=== PATIENT | female | born 1965 | race Caucasian/White ===

== ENCOUNTER 2020-11-13 14:19 | Emergency (ER) | payer OTHER, SELFPAY ==
--- NOTE | ~2020-11-13 | XR_ITS ---
EXAMINATION: XR foot RT min 3V EXAM DATE: 11/13/2020 15:21 INDICATION: Rectal injury, bruising, pain. Initial encounter. TECHNIQUE: Right foot dorsoplantar, lateral and oblique projections obtained and reviewed. There is no prior study for comparison. FINDINGS: Right metatarsal bones unremarkable. Acute closed posttraumatic fracture at the neck of t he right 4th proximal phalanx with about 40% superolateral displacement and mild angulation. There is overlying soft tissue swelling. No other acute findings. There is a metallic ring limiting evaluat ion of the 2nd toe. IMPRESSION: Acute right 4th proximal phalangeal neck fracture. Reviewed, dictated and finalized at location [facility]. [facility] CARVER
[2020-11-13 14:21] VITALS: BP 144/91; PULSE 77; RESP 17; TEMP 36.2; O2SAT 97
--- NOTE | 2020-11-13 17:07 | ED.GENADULT ---
HPI - General Adult General Chief complaint: Wound/Laceration Stated complaint: BROKEN TOE Time Seen by Provider: 11/13/20 15:27 Source: patient Mode of arrival: ambulatory Limitations: no limitations History of Present Illness HPI narrative: Patient presents with chief complaint of pain to the fourth right digit after accidentally stubbing the toe on a banister. Patient states that she noticed angulation of the toe so she came to the emergency department as it was also very painful. Patient states a friend gave her Vicodin as she was in a tremendous amount of pain and does not have any prescribed pain medication. Related Data Allergies Allergy/AdvReac Type Severity Reaction Status Date / Time No Known Allergies Allergy Verified 11/13/20 17:13 Review of Systems Review of Systems: Narrative: CONSTITUTIONAL: Denies fever, chills, or sweats. EYES: Denies visual changes, redness, or discharge. ENT: Denies rhinorrhea, congestion, sore throat, or otalgia. CARDIOVASCULAR: Denies chest pain, palpitations, or edema. RESPIRATORY: Denies cough or dyspnea. GASTROINTESTINAL: Denies abdominal pain, nausea, vomiting, or diarrhea. GENITOURINARY: Denies dysuria or hematuria. SKIN: Denies rash or itching. MUSCULOSKELETAL: Reports right fourth digit pain denies back pain, or myalgia. NEUROLOGIC: Denies headache, numbness, dizziness, or weakness. PSYCHIATRIC: Denies anxiety or depression. [facility] Social History Social History Gender identity (if verbalized by the patient): Female Exam Narrative: Exam Narrative: GENERAL: Well-appearing, well-nourished, and in no acute distress. HEAD: Normocephalic, atraumatic. EYES: PERRLA and EOMI. NECK: Supple. No adenopathy or masses. CHEST: Clear to auscultation. No respiratory distress. No wheezes rales or rhonchi HEART: Regular rate and rhythm. No murmur heard. Normal peripheral pulses. EXTREMITIES:: Ecchymosis noted to the 4th right fourth digit with deformity noted. No open wound noted. SKIN: Ecchymosis and swelling noted to the fourth digit warm, dry, no rash. NEURO: No focal deficits. Alert and oriented x3. PSYCH: Normal mood and affect. Course Vital Signs Vital signs: Vital Signs Temperature 97.2 F L 11/13/20 14:21 Pulse Rate 77 11/13/20 14:21 Respiratory Rate 17 11/13/20 14:21 Blood Pressure 144/91 H 11/13/20 14:21 Pulse Oximetry 97 11/13/20 14:21 Temperature 97.2 F L 11/13/20 14:21 Pulse Rate 77 11/13/20 14:21 Respiratory Rate 17 11/13/20 14:21 Blood Pressure 144/91 H 11/13/20 14:21 Pulse Oximetry 97 11/13/20 14:21 Medical Decision Making MDM Narrative Medical decision making narrative: Talk with Dr. Pacheco regarding patient's x-ray. He states despite the angulation he can be mckenzie taped and referred to software engineering specialist. Discussed with patient x-ray findings, need for follow-up, mckenzie taping and postop shoe. Patient refuses crutches to assist with ambulation. Patient states that she does not have any pain medication prescriptions &Needs medication for home to assist with pain. Differential Diagnosis Differential Diagnosis: Fracture, sprain, strain, contusion Vital Signs Vital Signs: Vital Signs Temperature 97.2 F L 11/13/20 14:21 Pulse Rate 77 11/13/20 14:21 Respiratory Rate 17 11/13/20 14:21 Blood Pressure 144/91 H 11/13/20 14:21 Pulse Oximetry 97 11/13/20 14:21 Temperature 97.2 F L 11/13/20 14:21 Pulse Rate 77 11/13/20 14:21 Respiratory Rate 17 11/13/20 14:21 Blood Pressure 144/91 H 11/13/20 14:21 Pulse Oximetry 97 11/13/20 14:21 Imaging Data Radiologist's impression: ITS Impressions Foot X-Ray 11/13/20 15:22 IMPRESSION: Acute right 4th proximal phalangeal neck fracture. Discharge Plan Discharge Clinical Impression: Closed fracture of fourth toe of right foot Patient Disposition: Home, Self-Care Condition: Stable Instructions: Antibiotic Form, Toe Fractu
[2020-11-13] MEDS: HYDROcodone/acetaminophen (*CRX) 5-325 MG TABLET 1 TAB PO (17:28)
== END 2020-11-13 17:49 | disposition home or self-care (01) ==
PROVIDERS: Emergency Provider Emergency Medicine
DX: M79.674 Pain in right toe(s) (principal); S92.511A Displaced fracture of proximal phalanx of right lesser toe(s), initial encounter for closed fracture; W22.09XA Striking against other stationary object, initial encounter
CPT/HCPCS: 73630; 99284; A9270

== ENCOUNTER 2023-12-15 13:10 | Outpatient (CLI) | payer OTHER, SELFPAY ==
--- NOTE | ~2023-12-15 | MR_ITS ---
MRI of the lumbar spine Clinical History: Left sciatica Technique: Axial T2-weighted images, and sagittal T1-weighted, T2-weighted, and and T2 fat-sat images were acquired. Findings: There is no fracture or subluxation of the lumbar spine. Vertebral bodies maintain normal h eight and alignment. No suspicious bone marrow signal abnormality seen. At L1-L2, there is no disc bulge or herniation. There is no significant facet joint arthropathy. No s clarita canal stenosis or neural foraminal narrowing. At L2-L3, there is mild degenerative disc narrowing. There is minimal disc bulge and mild facet arthr opathy. No central canal stenosis. There is mild bilateral neural foraminal narrowing. L3-L4, there is mild disc bulge and mild facet arthropathy. No central canal stenosis. There is sever e left neural foraminal narrowing, and mild right neural foraminal narrowing. At L4-L5, there is disc bulge and severe facet arthropathy. No yevgeniy central canal stenosis. There is severe left neural foraminal narrowing, with preservation right neural foramen. At L5-S1, there is mild disc bulge and moderate facet arthropathy. No central canal stenosis. There i s mild to moderate left neural foraminal narrowing. Right neural foramen preserved. Paravertebral soft tissues are unremarkable. Impression: Moderate degenerative spondylitic changes, as above. Reviewed, dictated and finalized at [facility]. [employer]IC PRESERVATIONIST Impression: Moderate degenerative spondylitic changes, as above.
== END 2023-12-15 13:11 ==
LOC: MICIMG 13:12
PROVIDERS: PCP Family Medicine; Visit Provider Family Medicine
DX: M54.32 Sciatica, left side (principal)
CPT/HCPCS: 72148

== ENCOUNTER 2024-08-19 10:27 | Outpatient (CLI) | payer OTHER, SELFPAY ==
--- NOTE | ~2024-08-19 | MM_ITS ---
EXAMINATION: MM screening nataliia BI w krystle HISTORY: Screening TECHNIQUE: Craniocaudal and mediolateral oblique 3-D tomosynthesis images were obtained and synthetic 2-D images were generated. CAD analysis was submitted and interpreted. COMPARISON: No prior mammogram is available for comparison at this institution. BREAST PARENCHYMAL COMPOSITION: Dense: The breasts are heterogeneously dense, which may obscure small masses FINDINGS: There is no evidence of suspicious mass, calcification, or architectural distortion to sugg est malignancy in either breast. There has been no suspicious interval change. IMPRESSION: 1. No mammographic evidence of malignancy. 2. Recommend routine screening mammography in one year. BI-RADS Category 1: Negative Reviewed, dictated and finalized at location [facility].
== END 2024-08-19 10:28 | disposition home or self-care (01) ==
LOC: MICIMG 10:28
PROVIDERS: PCP Family Medicine; Visit Provider Family Medicine
DX: Z12.31 Encounter for screening mammogram for malignant neoplasm of breast (principal)
CPT/HCPCS: 77063; 77067